=== PATIENT | female | born 1995 | race African-American/Black ===

== ENCOUNTER 2018-08-30 17:39 | Emergency (ER) | payer MEDICAID ==
[~2018-08-30] VITALS: Ht 167.6 cm; Wt 54.4 kg
[2018-08-30 18:03] VITALS: BP 109/66
--- NOTE | 2018-08-30 18:25 | NUR ---
PT BIB SELF TO THE ED WITH THE [facility] C/O SWOLLEN LEFT UPPER AND LOWER JAWS AND PAIN X1 DAY. STATES PAIN 10/10 AT THIS TIME. PT WAS SEEN BY DENTIST YESTERDAY FOR SAME REASON, TAKING MOTRIN AND AMOXICILLIN SINCE THEN W/O RELIEF. REPORTS HOT FLASHES. HAD TAKEN TYLENOL AROUND 1700 TODAY. REPORTS DIARRHEA SINCE YESTERDAY. DIARRHEA X2 TODAY. NO BLOO IN DIARRHEA. VSS. ER AWARE.
--- NOTE | 2018-08-30 18:26 | NUR ---
PT BEING SEEN BY ER AT THIS TIME.
[2018-08-30] MEDS ORDERED: cefTRIAXone 1,000 MG in LIDOCAINE MPF 1% - 5 mL VIAL 2.1 ML IM ONE (18:40)
[2018-08-30] MEDS ORDERED: KETOROLAC 60 MG/2 ML VIAL IM ONE (18:40)
--- NOTE | 2018-08-30 19:15 | NUR ---
REPORT RECIEVED FROM MELE THIBODEAUX. TRANSFER OF CARE AT THIS TIME.
--- NOTE | 2018-08-30 19:16 | NUR ---
REPORT GIVEN TO ROPE CLEANER RN.
[2018-08-30 19:24] VITALS: BP 128/74
--- NOTE | 2018-08-30 19:24 | NUR ---
Patient discharged with v/s stable. Written and verbal after care instructions given and explained. Patient verbalized understanding. Ambulatory with steady gait. All questions addressed prior to discharge. Advised to follow up with PMD.
== END 2018-08-30 19:24 | disposition home or self-care (01) ==
LOC: MED 17:39
DX: K04.7 Periapical abscess without sinus (principal)
CPT/HCPCS: 81025; 96372; 99283; J0696; J1885; J2001

== ENCOUNTER 2020-06-12 20:34 | Emergency (ER) | payer MEDICAID ==
[~2020-06-12] VITALS: Ht 165.1 cm; Wt 54.4 kg
[2020-06-12 20:37] VITALS: BP 123/73
--- NOTE | 2020-06-12 20:37 | NUR ---
TO ROOM #[id number] AMBULATORY
--- NOTE | 2020-06-12 20:55 | NUR ---
MARISELA COLLINS AT BEDSIDE FOR MEDICAL EVALUATION.
[2020-06-12] MEDS ORDERED: HYDROcodone/APAP 5/325 MG 1 TAB TAB PO ONE (21:00)
[2020-06-12] MEDS ORDERED: CLINDAMYCIN 600 MG/4 ML VIAL IM ONE (21:00)
[2020-06-12] MEDS ORDERED: KETOROLAC 30 MG/ML VIAL IM ONE (21:00)
--- NOTE | 2020-06-12 21:00 | NUR ---
24 YR OLD FEMALE AOX4 WITH CHIEF COMPLAINT OF FACIAL PAIN. PATIENT STATES 10/10 FACIAL PAIN IN THE UPPER LIP, RIGHT CHEEK, AND UNDER RIGHT EYE WITH SLIGHT SWELLING.PATIENT STATES HAVING DENTAL PROCEDURE LAST MONTH. PATIENT STATES PAIN HAS BEEN UNGOING SINCE YESTERDAY. PATIENT STATES BEING SEEN AT [facility] LAST NIGHT. PATIENT STATES NO NAUSEA AND NO OTHER DIFFICULTIES. BED LOCKED IN LOWEST POSITION WITH 1 SIDE RAIL UP. WILL CONTINUE TO MONITOR. HISTORY- NONE ALLERGIES- NONE
--- NOTE | 2020-06-12 21:40 | NUR ---
PATIENT FOUND AWAKE IN SEMI-FOWLERS ON BED. PATIENT STATES 0/10. PATIENT DENIES OTHER DISCOMFORT. BED LOCKED IN LOWEST POSITION WITH 1 SIDE RAIL UP.
[2020-06-12 22:23] VITALS: BP 106/45
--- NOTE | 2020-06-12 22:23 | NUR ---
Patient discharged with v/s stable. Written and verbal after care instructions given and explained. Patient alert, oriented and verbalized understanding of instructions. Ambulatory with steady gait. All questions addressed prior to discharge. ID band removed. Patient advised to follow up with PMD. Rx of NORCO AND CLINDAMYCIN given. Patient educated on indication of medication including possible reaction and side effects. Opportunity to ask questions provided and answered.
== END 2020-06-12 22:23 | disposition home or self-care (01) ==
LOC: MED 20:34
DX: K04.7 Periapical abscess without sinus (principal)
CPT/HCPCS: 96372; 99284; J1885; J3490

== ENCOUNTER 2022-01-09 16:01 | Emergency (ER) | payer MEDICAID ==
[~2022-01-09] VITALS: Ht 165.1 cm; Wt 52.2 kg
[2022-01-09 16:17] VITALS: BP 109/47
--- NOTE | 2022-01-09 16:30 | NUR ---
C/O 12/02 LEFT FOOT/ANKLE PAIN PAIN & SWELLING RADIATING TO LEFT CALF X YESTERDAY. DENIES TRAUMA.
--- NOTE | 2022-01-09 19:15 | NUR ---
BORIS WRAP X 1 APPLIED TO L ANKLE. CRUTCHES GIVEN TO PT AND PT RETURNED SAFE DEMONSTRATION.
[2022-01-09 19:17] VITALS: BP 116/61
--- NOTE | 2022-01-09 19:17 | NUR ---
Patient discharged with v/s stable. Written and verbal after care instructions given and explained. Patient verbalized understanding. Ambulatory with CRUTCHES . All questions addressed prior to discharge. Advised to follow up with PMD.
== END 2022-01-09 19:17 | disposition home or self-care (01) ==
LOC: MED 16:01
DX: S93.602A Unspecified sprain of left foot, initial encounter (principal); X58.XXXA Exposure to other specified factors, initial encounter; Y93.89 Activity, other specified; Y92.89 Other specified places as the place of occurrence of the external cause; Y99.8 Other external cause status
CPT/HCPCS: 73630; 99283